=== PATIENT | male | born 1980 | race Caucasian/White ===

== ENCOUNTER 2017-01-14 11:29 | Observation (INO) | payer BC ==
[~2017-01-14] VITALS: Ht 177.8 cm; Wt 136.0 kg
[2017-01-14 13:12] LABS: HEMATOCRIT 46.7 % (38.0-50.0); MCH 29.6 PG (29.0-34.0); MCHC 33.4 G/DL (30.0-36.0); MCV 88.6 FL (86-99); MEAN PLAT.VOLUME 9.2 uM^3 (9.0-12.4); PLATELET COUNT 293 K/uL (156-360); RBC DIS.WIDTH-CV 12.6 % (11.8-14.6); RBC DIS.WIDTH-SD 41.1 % (39-53); RED BLOOD COUNT 5.27 M/uL (4.00-5.50); WHITE BLOOD COUNT 11.3 K/uL (4.1-10.2)
[2017-01-14 13:23] LABS: CHLORIDE 105 mEq/L (99-109); POTASSIUM 4.2 mEq/L (3.7-5.4); SODIUM 141 mEq/L (136-147)
[2017-01-14 13:24] LABS: GLUCOSE 93 mg/dL (70-99)
[2017-01-14 13:26] LABS: ANION GAP 8 MEQ/L (2-14)
[2017-01-14 13:28] LABS: GFR ESTIMATE (CALCULATED) > 59 mL/min/
[2017-01-14 13:29] LABS: UREA NITROGEN (BUN) 11 mg/dL (9-23)
[2017-01-14 13:35] LABS: TROP-I INTERPRETATION NEGATIVE; TROPONIN-I 0.22 ng/mL (0.0-0.30)
[2017-01-14] MEDS ORDERED: ALEVE220 MG PO (16:15)
[2017-01-14 20:16] VITALS: BP 138/90
[2017-01-14 20:53] LABS: TROP-I INTERPRETATION NEGATIVE; TROPONIN-I 0.21 ng/mL (0.0-0.30)
[2017-01-14 20:54] LABS: HDL CHOLESTEROL 29 MG/DL (Desirable>=40); LDL CHOLESTEROL 164 mg/dL (Desirable<100); NON-HDL CHOLESTEROL 198 mg/dL (Desirable<160); TOTAL CHOLESTEROL 227 mg/dL (Desirable<200); TRIGLYCERIDES 172 MG/DL (Normal: <150)
[2017-01-14 22:10] LABS: Estimated Average Glucose 111 mg/dL (70-123); HEMOGLOBIN A1c (GLYCOHEMOGLOB) 5.5 % HGB (Below 5.7)
[2017-01-15 01:06] VITALS: BP 127/67
[2017-01-15 01:57] LABS: ADD MIUA? NO; BILIRUBIN NEGATIVE; BLOOD NEGATIVE; COLOR YELLOW ((YELLOW)); GLUCOSE (STRIP) NEGATIVE; KETONES NEGATIVE; LEUKOCYTES NEGATIVE; NITRITE NEGATIVE; PROTEIN (STRIP) NEGATIVE; SPECIFIC GRAVITY 1.009 (1.000-1.030); UCUL ADDED? NO; UROBILINOGEN 0.2 MG/DL (0.2-1.0)
[2017-01-15 02:23] LABS: AMPHETAMINES QUANT VALUE 0 NG/ML; BARBITUATES QUANT VALUE 0 NG/ML; BENZODIAZEPINES QUANT VALUE 0 NG/ML; BENZODIAZEPINES, URINE SCREEN Negative (200 ng/mL); OPIATES QUANTITATIVE VALUE 0 NG/ML; PHENCYCLIDINE QUANT VALUE 0 NG/ML
[2017-01-15 03:10] LABS: TROP-I INTERPRETATION NEGATIVE; TROPONIN-I 0.14 ng/mL (0.0-0.30)
[2017-01-15 05:15] VITALS: BP 128/74
[2017-01-15 07:41] VITALS: BP 137/85
[2017-01-15] MEDS ORDERED: LO-DOSE ASPIRIN81 M2 PO (09:38)
[2017-01-15] MEDS ORDERED: LISINOPRIL20 MG PO (09:38)
[2017-01-15] MEDS ORDERED: PRAVACHOL40 MG PO (09:38)
[2017-01-15] MEDS ORDERED: NICODERM CQ1 EAC1 TD (09:53)
== END 2017-01-15 11:30 | disposition home or self-care (01) ==
LOC: EME 11:29 → EDOF 15:49 → 5WEST 17:40
PROVIDERS: Internal Medicine; Physician Assistant Medical
DX: R07.9 Chest pain, unspecified (principal); E78.5 Hyperlipidemia, unspecified; R00.0 Tachycardia, unspecified; F17.210 Nicotine dependence, cigarettes, uncomplicated; E66.01 Morbid (severe) obesity due to excess calories; I16.0 Hypertensive urgency; I10 Essential (primary) hypertension
CPT/HCPCS: 71020; 80048; 80061; 80306 90; 81003; 83036; 84484; 85027; 93005; 99281; 99285; G0378; J0360; J1650; J7030